=== PATIENT | female | born 1950 | race Caucasian/White ===

== ENCOUNTER → 2016-08-12 | Outpatient (REF) | payer MEDICARE ==
[~2016-08-12] MED LIST: ATEN50TA2 PO; BIMA01SOL OU; VALS1TAB47 PO
== END ==
LOC: M LAB REF 16:40
PROVIDERS: ATTEND Internal Medicine
DX: N95.0 Postmenopausal bleeding (principal)

== ENCOUNTER → 2016-08-18 | Day surgery (SDC) | payer MEDICARE ==
[~2016-08-18] VITALS: Ht 177.8 cm; Wt 81.6 kg
[~2016-08-18] MED LIST changes: +CO Q100C10 PO; +KETOROLAC 60 MG/2 ML VIAL (J1885) As Ordered ONE; +LR 1,000 ML IV SCH; +MIDAZOLAM INJ 2 MG/2 ML VIAL (J2250) As Ordered ONE; +ONDANSETRON 4MG/2ML VIAL (J2405) As Ordered ONE; +ONDANSETRON 4MG/2ML VIAL (J2405) IV PRN; +PERCOCET 5MG/325MG TAB PO PRN; +PHENYLephrine HCL 500 MCG/5 ML (100MCG/ML) SYRINGE (J2370) As Ordered ONE; +PROPOFOL 500 MG/50 ML VIAL As Ordered ONE; +SILVER NITRATE APPLICATOR As Ordered ONE; +SILVER NITRATE APPLICATOR TOP ONE; +[UNRECOGNIZED DRUG - OTHER] PO; +dexameTHASONE 4 MG/ML 1ML VIAL (J1100) As Ordered ONE; +ePHEDrine SULFATE 25 MG/5 ML(5MG/ML) SYRINGE As Ordered ONE; +fentaNYL 100 MCG/2 ML INJECTION (J3010) As Ordered ONE; +fentaNYL 100 MCG/2 ML INJECTION (J3010) IV PRN
[2016-08-18 09:09] LABS: MEAN CORPUSCULAR HGB CONC 34.3 g/dl (32.0-36.5); MEAN CORPUSCULAR VOLUME 90.5 fl (80.0-96.0); RED CELL DISTRIBUTION WIDTH 12.3 % (11.5-14.5); WHITE BLOOD COUNT 5.7 K/mm3 (4.0-10.0)
--- NOTE | 2016-08-18 11:20 | ECGEPIP ---
Stationary ECG Study [facility] Test Date: 2016-08-18 Pat Name: CHRISTI ATKINSON Department: Room: - Gender: F Oil Pumper: JAZMINE : 1950 Requested By: Bryant Graves Order Number: [id number] Reading MD: Cameron Wilkerson Measurements Intervals [place] Rate: 74 P: 64 GA: 209 QRS: -43 QRSD: 139 T: 101 QT: 421 QTc: 469 Interpretive Statements SINUS RHYTHM Left axis deviation Left bundle branch block as previously noted in tracing from 09-18-2015 Electronically Signed On 08-18-2016 11:20:30 EST by Cameron Wilkerson
--- NOTE | 2016-08-18 13:54 | RO ---
DATE OF PROCEDURE: 08/18/2016 PREPROCEDURE DIAGNOSES: 1. Postmenopausal bleeding. 2. Intrauterine mass per pelvic ultrasound. POSTPROCEDURE DIAGNOSES: 1. Postmenopausal bleeding. 2. Intrauterine mass per pelvic ultrasound. 3. Suspect submucosal leiomyoma or large endometrial polyp. PROCEDURE PERFORMED: Hysteroscopy / MyoSure morcellation of intrauterine mass, dilation and curettage. SURGEON: Justin Camacho DO ENGINE HOUSE HELPER: Abdulkadir Hutson OMS-1. ANESTHESIA: General via LMA. SPECIMENS TO PATHOLOGY: 1. Intrauterine mass. 2. Endometrial curettings. ESTIMATED BLOOD LOSS: 10 mL. FLUIDS REPLACED: 1400 mL lactated Ringer's. DRAINS: In-and-out catheter with 300 mL of urine output. COMPLICATIONS: None. Hysteroscopic fluid deficit approximately 500 mL. INTRAOPERATIVE FINDINGS: Intrauterine mass approximately 3-4 cm in greatest dimension, reaching the level of the right fallopian tube ostium. INDICATIONS: The patient is a 65-year-old postmenopausal female with a history of postmenopausal bleeding. Subsequent pelvic ultrasound revealed an approximately 2.6 cm well defined endometrial mass. She was therefore counseled and consented for diagnostic hysteroscopy/operative hysteroscopy via possible MyoSure device use. PROCEDURE: The patient was counseled and consented on the risks, benefits, indications and alternative procedure. Informed consent was obtained. She was taken to the operating room with an IV running, placed on operating table in dorsal supine position. General anesthesia was administered and the airway secured without any difficulty. She was then placed in the low lithotomy position. She was prepared and draped in normal sterile fashion. A time-out was performed per protocol. The patient was placed in the high lithotomy position. The bladder was drained with a sterile in-and-out catheter. A sterile speculum placed with good visualization of the cervix. The anterior lip of the cervix was grasped with single-tooth tenaculum and downward traction was applied. The cervix was sequentially dilated to a Dong dilator #16. The uterus sounded to 10 cm. The hysteroscope was placed with findings noted above. The intrauterine mass, which was approximately 3-4 cm in greatest dimension and elongated up to the right cornua was fully delineated. The MyoSure device was then placed into the intrauterine cavity and the tip of the MyoSure device was abutting the mass. The MyoSure device was activated and morcellation ensued. The mass was morcellated in its entirety. Once the mass was entirely removed, the MyoSure device was removed. Sharp curettage was performed throughout the endometrial cavity. The endometrium did appear otherwise uniformly atrophic aside from this mass. Mgmt Specialist images were taken and placed in the chart. The curettings, which revealed a scant amount of tissue, were sent to pathology for evaluation. An additional look inside the endometrial cavity revealed excellent hemostasis. The hysteroscope was removed. Single-tooth tenaculum was removed. Tenaculum sites were cauterized with silver nitrate. Excellent hemostasis was noted. Minimal bleeding from the cervical os was noted. All instruments were removed from the vagina. Sponge, lap, needle and instrument counts were correct. The patient tolerated the entire procedure well. She was transferred to the postanesthesia care unit in good and stable condition. DINAA
[2016-08-18 14:00] VITALS: BP 142/67
== END | disposition home or self-care (01) ==
LOC: M SDC 08:38
PROVIDERS: ATTEND Obstetrics & Gynecology
DX: N95.0 Postmenopausal bleeding (principal); N85.01 Benign endometrial hyperplasia; N84.0 Polyp of corpus uteri; I10 Essential (primary) hypertension; E66.9 Obesity, unspecified; Z79.899 Other long term (current) drug therapy
CPT/HCPCS: 36415; 58558; 85027; 86850; 86900; 86901; 88305; 93005; J1100; J1885; J2250; J2370; J2405; J3010

== ENCOUNTER 2017-05-26 10:31 | Day surgery (SDC) | payer MEDICARE ==
[~2017-05-26] VITALS: Ht 177.8 cm; Wt 82.6 kg
[~2017-05-26 10:31] MED LIST changes: -KETOROLAC 60 MG/2 ML VIAL (J1885) As Ordered ONE; -LR 1,000 ML IV SCH; +METO25TA4 PO; -MIDAZOLAM INJ 2 MG/2 ML VIAL (J2250) As Ordered ONE; +OFLOXACIN 0.3 % (OCUFLOX) OPTH SOL 5ML OD ONE; -ONDANSETRON 4MG/2ML VIAL (J2405) As Ordered ONE; -ONDANSETRON 4MG/2ML VIAL (J2405) IV PRN; -PERCOCET 5MG/325MG TAB PO PRN; +PHENYLEPHRINE 2.5% OPHTH SOL 2ML OD ONE; -PHENYLephrine HCL 500 MCG/5 ML (100MCG/ML) SYRINGE (J2370) As Ordered ONE; +PRESCAP PO; +PROPARACAINE 0.5% OPHTH SOL 15ML OD ONE; -PROPOFOL 500 MG/50 ML VIAL As Ordered ONE; -SILVER NITRATE APPLICATOR As Ordered ONE; -SILVER NITRATE APPLICATOR TOP ONE; +TROPICAMIDE 1% OPHTH SOLN 2ML OD ONE; +VITA100067 PO; -dexameTHASONE 4 MG/ML 1ML VIAL (J1100) As Ordered ONE; -ePHEDrine SULFATE 25 MG/5 ML(5MG/ML) SYRINGE As Ordered ONE; -fentaNYL 100 MCG/2 ML INJECTION (J3010) As Ordered ONE; -fentaNYL 100 MCG/2 ML INJECTION (J3010) IV PRN
[2017-05-26] MEDS ORDERED: LIDOCAINE 1% SDV 5 ML VIAL SC ONE (11:00)
[2017-05-26] MEDS ORDERED: MIDAZOLAM INJ 2 MG/2 ML VIAL (J2250) As Ordered ONE (12:01)
[2017-05-26] MEDS ORDERED: fentaNYL 100 MCG/2 ML INJECTION (J3010) As Ordered ONE (12:02)
[2017-05-26] MEDS ORDERED: BALANCED SALT IRRIGATION SOLUTION 500ML BAG (FOR OR EYE MACHINE) As Ordered ONE (12:14)
[2017-05-26] MEDS ORDERED: CEFUROXIME 1MG/0.1ML INTRACAMERAL INJ As Ordered ONE (12:14)
[2017-05-26] MEDS ORDERED: ACETYLCHOLINE OPHTH SOLN 1% 2ML (MIOCHOL-E) As Ordered ONE (12:14)
[2017-05-26] MEDS ORDERED: POVIDONE-IODINE 5% OPHTH PREP SOL 30ML As Ordered ONE (12:14)
[2017-05-26] MEDS ORDERED: LIDOCAINE 0.75%/EPINEPHRINE 0.025% IN BSS 1ML SYR INTRACAMERAL (OR ONLY) As Ordered ONE (12:14)
[2017-05-26] MEDS ORDERED: DUOVISC (0.50ML VISCOAT/0.55ML PROVISC) OPHTH KIT As Ordered ONE (12:14)
[2017-05-26 13:20] VITALS: BP 132/61
--- NOTE | 2017-05-27 19:40 | RO ---
DATE OF PROCEDURE: 05/26/2017 PREOPERATIVE DIAGNOSIS: Visually significant nuclear sclerotic cataract right eye. POSTOPERATIVE DIAGNOSIS: Visually significant nuclear sclerotic cataract right eye. PROCEDURE: Cataract extraction with use of phacoemulsification and placement of intraocular lens, AU00T0 15.0, right eye. SURGEON: Les Kessler DO DBA DEVELOPER: ANESTHESIA: Local with monitored anesthesia care (MAC). COMPLICATIONS: None. POSTOPERATIVE CONDITION: Stable. INDICATION FOR SURGERY: Blurred vision right eye affecting patient's activities of daily living. DESCRIPTION OF PROCEDURE: The patient was seen in the preoperative area and properly identified. The correct operative eye was identified and marked. Attention was turned to that eye. The patient received topical antibiotics in the preoperative area. The patient then received topical dilating drops consisting of tropicamide and phenylephrine. The patient was then transferred to the operating room. The correct side was re-identified. The patient received topical anesthetics and antibiotics on the surface of the eye. The eye was prepped and draped in a sterile fashion. The upper and lower eyelids were isolated with Tegaderm tape, and the lids were held open with an adjustable speculum. Using a sideport blade, a paracentesis incision was made. Intraocular preservative-free lidocaine was then injected into the anterior chamber. Viscoelastic was then injected into the anterior chamber through the paracentesis. Using a 2.4 mm sharp-tipped keratome, the anterior chamber was entered via a temporal clear corneal incision. A continuous curvilinear capsulorrhexis was created with the aid of a 26-gauge cystotome and Utrata forceps. Hydrodissection was performed with balanced salt solution (BSS) on a blunt cannula until the nucleus was freely mobile. The crystalline lens was phacoemulsified and aspirated. Additional cohesive viscoelastic was placed into the capsular bag to deepen it. An AU00T0 15.0 lens was placed into the capsular bag and confirmed by visualizing the continuous curvilinear capsulorrhexis. Additional irrigation and aspiration was used to remove cortical material and remaining viscoelastic. The clear corneal incision was hydrated with BSS on a blunt cannula. The lens was well positioned. The incisions were then tested for leaks and found to be negative. The eye was then palpated for appropriate pressure and adjusted accordingly with BSS. The eyelid speculum was carefully removed. A shield was placed over the eye. The patient tolerated the procedure well and was discharged to the recovery unit in a stable condition. DIANA
== END 2017-05-26 13:40 | disposition home or self-care (01) ==
LOC: M SDC 10:31
PROVIDERS: ATTEND Ophthalmology
DX: H25.11 Age-related nuclear cataract, right eye (principal); H40.9 Unspecified glaucoma; I10 Essential (primary) hypertension; Z79.899 Other long term (current) drug therapy
CPT/HCPCS: 66984; J2250; J3010; V2632

== ENCOUNTER 2017-06-16 09:43 | Day surgery (SDC) | payer MEDICARE ==
[~2017-06-16 09:43] MED LIST changes: -ATEN50TA2 PO; -BIMA01SOL OU; -CO Q100C10 PO; -METO25TA4 PO; +MIDAZOLAM INJ 2 MG/2 ML VIAL (J2250) As Ordered; -OFLOXACIN 0.3 % (OCUFLOX) OPTH SOL 5ML OD ONE; -PHENYLEPHRINE 2.5% OPHTH SOL 2ML OD ONE; -PRESCAP PO; -PROPARACAINE 0.5% OPHTH SOL 15ML OD ONE; -TROPICAMIDE 1% OPHTH SOLN 2ML OD ONE; -VALS1TAB47 PO; -VITA100067 PO; -[UNRECOGNIZED DRUG - OTHER] PO
[2017-06-16] MEDS: OFLOXACIN 0.3 % (OCUFLOX) OPTH SOL 5ML OS ×2 (12:04)
[2017-06-16] MEDS: TROPICAMIDE 1% OPHTH SOLN 2ML OS ×2 (12:05)
[2017-06-16] MEDS: PHENYLEPHRINE 2.5% OPHTH SOL 2ML OS ×2 (12:05)
[2017-06-16] MEDS: PROPARACAINE 0.5% OPHTH SOL 15ML OS ×2 (12:06)
[2017-06-16] MEDS ORDERED: fentaNYL 100 MCG/2 ML INJECTION (J3010) As Ordered ×2 (12:20)
[2017-06-16] MEDS: DUOVISC (0.50ML VISCOAT/0.55ML PROVISC) OPHTH KIT As Ordered ×2 (13:38)
[2017-06-16] MEDS: ACETYLCHOLINE OPHTH SOLN 1% 2ML (MIOCHOL-E) As Ordered ×2 (13:38)
[2017-06-16] MEDS: CEFUROXIME 1MG/0.1ML INTRACAMERAL INJ As Ordered ×2 (13:38)
[2017-06-16] MEDS: POVIDONE-IODINE 5% OPHTH PREP SOL 30ML As Ordered ×2 (13:38)
[2017-06-16] MEDS: LIDOCAINE 0.75%/EPINEPHRINE 0.025% IN BSS 1ML SYR INTRACAMERAL (OR ONLY) As Ordered (13:38)
[2017-06-16] MEDS: BALANCED SALT IRRIGATION SOLUTION 500ML BAG (FOR OR EYE MACHINE) As Ordered ×2 (13:38)
== END 2017-06-16 14:45 | disposition home or self-care (01) ==
LOC: M SDC 14:45
DX: H25.12 Age-related nuclear cataract, left eye (principal); H21.81 Floppy iris syndrome; H27.8 Other specified disorders of lens; I10 Essential (primary) hypertension; H40.013 Open angle with borderline findings, low risk, bilateral; Z79.899 Other long term (current) drug therapy; Z86.69 Personal history of other diseases of the nervous system and sense organs; Z78.0 Asymptomatic menopausal state
CPT/HCPCS: 66982

== ENCOUNTER → 2017-08-08 | Outpatient (REF) | payer MEDICARE ==
[2017-08-09 09:49] LABS: PHOSPHORUS LEVEL 2.7 MG/DL (2.5-4.9)
== END ==
LOC: M LAB REF 18:16
DX: E83.52 Hypercalcemia (principal)
CPT/HCPCS: 84100

== ENCOUNTER 2017-10-12 08:57 | Day surgery (SDC) | payer MEDICARE ==
[~2017-10-12 08:57] MED LIST changes: +LIDOCAINE 2% MDV 20 ML VIAL As Ordered; -MIDAZOLAM INJ 2 MG/2 ML VIAL (J2250) As Ordered; +PROPOFOL 200 MG/20 ML VIAL As Ordered
== END 2017-10-12 11:00 | disposition home or self-care (01) ==
LOC: M OPP 08:57
DX: Z12.11 Encounter for screening for malignant neoplasm of colon (principal); D12.5 Benign neoplasm of sigmoid colon; K64.0 First degree hemorrhoids; I10 Essential (primary) hypertension; E78.5 Hyperlipidemia, unspecified; Z78.0 Asymptomatic menopausal state; Z79.899 Other long term (current) drug therapy; Z80.42 Family history of malignant neoplasm of prostate
CPT/HCPCS: 45385

== ENCOUNTER → 2018-03-24 | Outpatient (REF) | payer MEDICARE ==
[2018-03-27 14:34] LABS: PTH INTACT 86.8 PG/ML (18.5-88.0)
== END ==
LOC: M LAB REF 12:50
DX: E83.52 Hypercalcemia (principal)
CPT/HCPCS: 83970

== ENCOUNTER → 2019-04-23 | Outpatient (REF) | payer MEDICARE ==
[~2019-04-23] MED LIST changes: +ATEN50TA2 PO; +ATOR1TAB19 PO; +BIMA01SOL OU; +CO Q100C10 PO; -LIDOCAINE 2% MDV 20 ML VIAL As Ordered; +METO25TA4 PO; +PRESCAP PO; -PROPOFOL 200 MG/20 ML VIAL As Ordered; +VALS1TAB67 PO; +VITA100067 PO; +[UNRECOGNIZED DRUG - OTHER] PO
== END ==
LOC: M LAB REF 16:42
PROVIDERS: ATTEND Internal Medicine
DX: E21.0 Primary hyperparathyroidism (principal)

== ENCOUNTER → 2019-10-22 | Outpatient (REF) | payer MEDICARE | LOC: M LAB REF 16:19 | PROVIDERS: ATTEND Internal Medicine | DX: E83.52 Hypercalcemia (principal) ==

== ENCOUNTER → 2019-11-23 | Outpatient (REF) | payer MEDICARE | LOC: M LAB REF 17:15 | PROVIDERS: ATTEND Internal Medicine | DX: E21.0 Primary hyperparathyroidism (principal) ==

== ENCOUNTER → 2020-07-02 | Outpatient (REF) | payer MEDICARE | LOC: M LAB REF 12:30 | PROVIDERS: ATTEND Internal Medicine | DX: E21.0 Primary hyperparathyroidism (principal) ==

== ENCOUNTER → 2020-09-22 | Outpatient (CLI) | payer MEDICARE ==
--- NOTE | 2020-09-22 10:51 | REPMRS ---
Patient History The patient states she has not had a clinical breast exam in over a year. Patient is postmenopausal. Family history of prostate cancer at age 70 in father. 3D TOMOSYNTHESIS WAS PERFORMED. [facility] lifetime risk for breast cancer is 3.8%. Volpara breast density b. Digital Woman Screen Mammo: September 22, 2020 - Exam #: [id number] Bilateral CC and MLO view(s) were taken. Technologist: Yolanda Thompson Technologist Prior study comparison: February 13, 2019, bilateral digital mammo screening bilat, performed at [facility]. FINDINGS: There are scattered fibroglandular densities. There has been no change in the appearance of the mammogram from the prior studies. There is a mild amount of residual fibroglandular tissue which is fairly symmetric. There is no interval development of dominant mass, architectural distortion, or clustered microcalcification suggestive of malignancy. Assessment: BI-RADS/ACR category 1 mammogram. Negative Mammogram. Recommendation Routine screening mammogram in 1 year (for women over age 40). This mammogram was interpreted with the aid of an FDA-approved computer-aided dectection system. Electronically Signed By: Keegan Maza MD 09/22/20 [id number]
--- NOTE | 2020-09-22 11:32 | DEXAMM ---
INDICATION: [id number] [facility] DISRD OF BONE DENSITY AND STRUCTURE. COMPARISON: 08/11/2017 and 05/12/2011. TECHNIQUE: Bone density was measured using dual-energy x-ray absorptiometry (DEXA). FINDINGS: AP SPINE L1-L4 BMD 1.208 g/cm2 Young Adult T-Score 0.2 Age Matched Z-Score 1.9. LT FEMUR, TOTAL BMD 0.933 g/cm2 Young Adult T-Score -0.6 Age Matched Z-Score 1.0. LT NECK BMD 0.782 g/cm2 Young Adult T-Score -1.8 Age Matched Z-Score -0.1. RT FEMUR, TOTAL BMD 0.918 g/cm2 Young Adult T-Score -0.7 Age Matched Z-Score 0.9. RT NECK BMD 0.786 g/cm2 Young Adult T-Score -1.8 Age Matched Z-Score 0.0. IMPRESSION: There is normal bone density of the spine. There is low bone density of the left hip. There is low bone density of the right hip. The density of the spine has decreased 3.0% since the initial exam on 05/12/2011. The density of the spine decreased 3.4% since most recent exam on 08/11/2017. The density of the left hip has decreased 8.9% since initial exam on 05/12/2011. The density of the left hip has decreased 4.7% since most recent exam on 08/11/2017. The density of the right hip has decreased 11.6% since the initial exam on 05/12/2011. The density of the right hip has decreased 8.0% since the most recent exam on 08/11/2017. FOLLOW-UP: Recommendation for the next bone density exam: 2 years. <Electronically signed by Keegan Maza > 09/22/20 [id number]
== END ==
LOC: M WHC 09:44
PROVIDERS: ATTEND Internal Medicine
DX: Z12.31 Encounter for screening mammogram for malignant neoplasm of breast (principal); M85.851 Other specified disorders of bone density and structure, right thigh; M85.852 Other specified disorders of bone density and structure, left thigh

== ENCOUNTER → 2020-12-31 | Outpatient (REF) | payer MEDICARE | LOC: M LAB REF 11:42 | PROVIDERS: ATTEND Internal Medicine | DX: E21.0 Primary hyperparathyroidism (principal) ==

== ENCOUNTER → 2021-07-20 | Outpatient (REF) | payer MEDICARE | LOC: M LAB REF 16:17 | PROVIDERS: ATTEND Internal Medicine | DX: E21.0 Primary hyperparathyroidism (principal) ==

== ENCOUNTER → 2022-01-25 | Outpatient (REF) | payer MEDICARE | LOC: M LAB REF 16:11 | PROVIDERS: ATTEND Internal Medicine | DX: E21.0 Primary hyperparathyroidism (principal); R30.0 Dysuria ==

== ENCOUNTER → 2022-02-04 | Outpatient (REF) | payer MEDICARE | LOC: M LAB REF 16:02 | PROVIDERS: ATTEND Internal Medicine | DX: N39.0 Urinary tract infection, site not specified (principal) ==

== ENCOUNTER → 2022-08-09 | Outpatient (REF) | payer MEDICARE ==
[2022-08-09 13:10] LABS: PHOSPHORUS LEVEL 1.9 MG/DL (2.4-5.1); PTH INTACT 131.4 PG/ML (18.5-88.0)
== END ==
LOC: M LAB REF 11:53
PROVIDERS: ATTEND Internal Medicine
DX: E21.0 Primary hyperparathyroidism (principal); E23.0 Hypopituitarism

== ENCOUNTER → 2023-02-07 | Outpatient (REF) | payer MEDICARE | LOC: M LAB REF 16:24 | PROVIDERS: ATTEND Internal Medicine | DX: E21.0 Primary hyperparathyroidism (principal) ==

== ENCOUNTER → 2023-02-24 | Outpatient (REF) | payer MEDICARE | LOC: M LAB REF 16:22 | PROVIDERS: ATTEND Internal Medicine | DX: N95.0 Postmenopausal bleeding (principal) ==

== ENCOUNTER → 2023-03-01 | Outpatient (CLI) | payer MEDICARE | LOC: M WHC 08:56 | PROVIDERS: ATTEND Internal Medicine | DX: N95.0 Postmenopausal bleeding (principal); R93.89 Abnormal findings on diagnostic imaging of other specified body structures ==

== ENCOUNTER → 2023-03-10 | Outpatient (REF) | payer MEDICARE | LOC: M LAB REF 16:29 | PROVIDERS: ATTEND Internal Medicine | DX: E83.52 Hypercalcemia (principal) ==

== ENCOUNTER → 2023-04-12 | Outpatient (CLI) | payer MEDICARE | LOC: M WHC 14:01 | PROVIDERS: ATTEND Internal Medicine | DX: Z12.31 Encounter for screening mammogram for malignant neoplasm of breast (principal) ==

== ENCOUNTER → 2023-06-03 | Outpatient (CLI) | payer MEDICARE ==
[~2023-06-03] MED LIST changes: +IRBE150T7 PO; +LOPR1TAB6 PO; +PRES1CHW PO; +ROCA0.5C PO; +VIT1TAB.8 PO; +VITA200028 PO; +VITA500C24 PO; +VITMTA PO
[2023-06-03 18:18] LABS: BLOOD UREA NITROGEN 19 MG/DL (9-23); CALCIUM LEVEL 11.4 MG/DL (8.3-10.6); CARBON DIOXIDE LEVEL 30 MMOL/L (20-31); CHLORIDE LEVEL 109 MMOL/L (98-107); CREATININE FOR GFR 0.65 MG/DL (0.55-1.30); GLOMERULAR FILTRATION RATE > 60.0 (>39); GLUCOSE, FASTING 73 MG/DL (74-106); POTASSIUM SERUM 4.2 MMOL/L (3.5-5.1); SODIUM LEVEL 144 MMOL/L (136-145)
== END ==
LOC: M EKG 16:13
PROVIDERS: ATTEND Anesthesiology
DX: Z01.818 Encounter for other preprocedural examination (principal); I10 Essential (primary) hypertension; I44.7 Left bundle-branch block, unspecified

== ENCOUNTER 2023-06-15 07:42 | Day surgery (SDC) | payer MEDICARE ==
[~2023-06-15] VITALS: Ht 177.8 cm; Wt 74.4 kg
[2023-06-15 08:06] LABS: HEMATOCRIT 42.5 % (36.0-47.0); HEMOGLOBIN 13.8 g/dl (12.0-15.5); MEAN CORPUSCULAR HEMOGLOBIN 30.6 pg (27.0-33.0); MEAN CORPUSCULAR HGB CONC 32.5 g/dl (32.0-36.5); MEAN CORPUSCULAR VOLUME 94.2 fl (80.0-96.0); PLATELET COUNT, AUTOMATED 151 10^3/uL (150-450); RED BLOOD COUNT 4.51 10^6/uL (4.00-5.40); WHITE BLOOD COUNT 5.3 10^3/uL (4.0-10.0)
[2023-06-15] MEDS ORDERED: LR 1,000 ML IV SCH ×2 (08:20→11:35)
[2023-06-15] MEDS ORDERED: SILVER NITRATE APPLICATOR (1 = QTY 10) As Ordered ONE (09:46)
[2023-06-15] MEDS ORDERED: ACETAMINOPHEN 1000MG 100ML IV BAG As Ordered ONE (10:27)
[2023-06-15] MEDS ORDERED: LIDOCAINE 2% 100MG/5ML SDV (FOR ANES.) As Ordered ONE (10:27)
[2023-06-15] MEDS ORDERED: ONDANSETRON 4MG 2ML VIAL As Ordered ONE (10:27)
[2023-06-15] MEDS ORDERED: fentaNYL 100 MCG/2 ML INJECTION As Ordered ONE (10:27)
[2023-06-15] MEDS ORDERED: propofoL 200 MG/20 ML VIAL As Ordered ONE (10:27)
[2023-06-15] MEDS ORDERED: ePHEDrine SULFATE 25 MG/5 ML(5MG/ML) SYRINGE As Ordered ONE (10:27)
[2023-06-15] MEDS ORDERED: KETOROLAC 60MG 2ML VIAL As Ordered ONE (10:27)
[2023-06-15] MEDS ORDERED: MIDAZOLAM INJ 2MG/2ML VIAL As Ordered ONE (10:27)
[2023-06-15] MEDS ORDERED: METOCLOPRAMIDE INJ 10MG/2ML VIAL IV PRN (11:35)
[2023-06-15] MEDS ORDERED: ONDANSETRON 4MG 2ML VIAL IV PRN (11:35)
[2023-06-15] MEDS ORDERED: HYDROMORPHONE HCL 0.5 MG/ 0.5 ML SYRINGE IV PRN (11:35)
[2023-06-15] MEDS ORDERED: oxyCODONE 5MG TAB PO PRN (11:35)
[2023-06-15] MEDS ORDERED: PROMETHAZINE 25MG/ML 1ML VIAL IV PRN (11:35)
[2023-06-15] MEDS ORDERED: fentaNYL 100 MCG/2 ML INJECTION IV PRN (11:35)
[2023-06-15 12:15] VITALS: BP 146/70; TEMP 97.8; O2SAT 97
== END 2023-06-15 12:45 | disposition home or self-care (01) ==
LOC: M SDC 07:42
PROVIDERS: ATTEND Obstetrics & Gynecology
DX: N84.0 Polyp of corpus uteri (principal); N72 Inflammatory disease of cervix uteri; N95.0 Postmenopausal bleeding; I10 Essential (primary) hypertension; E21.3 Hyperparathyroidism, unspecified; Z79.899 Other long term (current) drug therapy; Z90.49 Acquired absence of other specified parts of digestive tract; E78.00 Pure hypercholesterolemia, unspecified
CPT/HCPCS: 36415; 58558; 85027; 86850; 86900; 86901; 88305; J0131; J1100; J1885; J2250; J2405; J3010

== ENCOUNTER → 2023-08-09 | Outpatient (REF) | payer MEDICARE ==
[~2023-08-09] MED LIST changes: +IRBE150T27 PO; -IRBE150T7 PO
== END ==
LOC: M LAB REF 12:12
PROVIDERS: ATTEND Internal Medicine
DX: E83.52 Hypercalcemia (principal)

== ENCOUNTER → 2023-11-04 | Outpatient (CLI) | payer MEDICARE ==
[2023-11-04 12:35] LABS: BLOOD UREA NITROGEN 17 MG/DL (9-23); CALCIUM LEVEL 11.9 MG/DL (8.3-10.6); CARBON DIOXIDE LEVEL 30 MMOL/L (20-31); CHLORIDE LEVEL 108 MMOL/L (98-107); CREATININE FOR GFR 0.83 MG/DL (0.55-1.30); GLOMERULAR FILTRATION RATE > 60.0 (>39); GLUCOSE, FASTING 105 MG/DL (74-106); SODIUM LEVEL 142 MMOL/L (136-145)
== END ==
LOC: M LAB 11:26
PROVIDERS: ATTEND Surgery
DX: E21.0 Primary hyperparathyroidism (principal)

== ENCOUNTER → 2024-04-30 | Outpatient (CLI) | payer MEDICARE | LOC: M WHC 12:43 | PROVIDERS: ATTEND Internal Medicine | DX: Z12.31 Encounter for screening mammogram for malignant neoplasm of breast (principal); M81.0 Age-related osteoporosis without current pathological fracture ==

== ENCOUNTER → 2024-08-16 | Outpatient (REF) | payer MEDICARE | LOC: M LAB REF 16:47 | PROVIDERS: ATTEND Internal Medicine | DX: E83.52 Hypercalcemia (principal) ==